=== PATIENT | female | born 1950 | race Caucasian/White ===

== ENCOUNTER 2017-03-10 14:21 | Outpatient (CLI) | payer MEDICARE, BC | END 2017-03-10 14:22 | disposition home or self-care (01) | DX: M85.88 Other specified disorders of bone density and structure, other site (principal); Z79.890 Hormone replacement therapy ==

== ENCOUNTER 2018-08-22 13:33 | Outpatient (CLI) | payer MEDICARE, BC ==
--- NOTE | 2018-08-23 14:09 | Mammography Report ---
Reason: SCREENING MAMMO Procedure Date: 08/22/2018 Accession Number: [id number] / [id number] Procedure: [facility] - Screening Mammo Dig Bilat CPT Code: FULL RESULT: EXAM: Screening Mammo Dig Bilat DATE: 08/22/2018 1:49 PM CLINICAL HISTORY: 67-year-old female presents for screening mammogram. TECHNIQUE: Bilateral CC and MLO views were obtained. COMPARISON: 03/15/2012, 01/29/2010, 01/16/2009. FINDINGS: The breasts demonstrate scattered fibroglandular densities bilaterally. No suspicious masses, clustered microcalcifications, or regions of architectural distortion are identified. IMPRESSION: Negative examination RECOMMENDATION: Routine annual screening unless otherwise clinically indicated. BIRADS CATEGORY 1: Negative STANDARD QUALIFYING STATEMENTS: 1. This examination was not reviewed with the aid of Computer-Aided Detection (CAD). 2. A negative or benign imaging report should not delay biopsy if clinically suspicious findings are present. Consider surgical consultation if warrented. More than 5% of cancers are not identified by imaging. 3. Dense breasts may obscure an underlying neoplasm. 4. This examination was reviewed without the aid of 3D breast imaging (tomosynthesis).
== END 2018-08-22 13:34 | disposition home or self-care (01) ==
LOC: DI.N 13:33
PROVIDERS: ATTEND Internal Medicine
DX: Z12.31 Encounter for screening mammogram for malignant neoplasm of breast (principal)
CPT/HCPCS: 77067

== ENCOUNTER 2019-12-17 18:45 | Outpatient (CLI) | payer MEDICARE, BC | END 2019-12-17 18:46 | disposition E | LOC: EMS 18:45 | PROVIDERS: ATTEND Surgery | DX: I46.9 Cardiac arrest, cause unspecified (principal) ==